=== PATIENT | male | born 1970 | race American Indian/Alaskan Native ===

== ENCOUNTER 2017-07-19 18:33 | Emergency (ER) | payer OTHER ==
[2017-07-19 18:40] VITALS: BP 146/78
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
== END 2017-07-19 19:00 | disposition home or self-care (01) ==
LOC: ED 18:33
DX: M25.512 Pain in left shoulder (principal); M54.2 Cervicalgia; M54.89 Other dorsalgia; M10.9 Gout, unspecified; Z91.048 Other nonmedicinal substance allergy status; V89.2XXA Person injured in unspecified motor-vehicle accident, traffic, initial encounter; Y93.89 Activity, other specified; Y99.8 Other external cause status; Y92.410 Unspecified street and highway as the place of occurrence of the external cause
CPT/HCPCS: 99282